=== PATIENT | male | born 1970 | race Caucasian/White ===

== ENCOUNTER 2021-06-11 08:21 | Emergency (ER) | payer OTHER ==
[2021-06-11 10:00] LABS: HCT 44.4 % (42.0-52.0); HGB 14.9 g/dl (13.2-18.0); MCHC 33.6 g/dL (32.0-36.0); MCV 89.5 fL (78.0-100.0); MPV 10.8 fL (6.0-9.5); RBC 4.96 M/uL (4.70-6.00); RDW 12.1 % (11.5-14.0); WBC 9.5 K/uL (4.0-10.5)
[2021-06-11 11:01] LABS: BUN/CREAT RATIO (CALC) 11.4 RATIO; CREATININE 0.7 mg/dL (0.67-1.17); POTASSIUM 3.9 mmol/L (3.5-5.1)
== END 2021-06-11 13:10 | disposition other institution (70) ==
LOC: FER 08:21
PROVIDERS: Emergency Medicine
DX: I63.9 Cerebral infarction, unspecified (principal); H53.8 Other visual disturbances; F17.210 Nicotine dependence, cigarettes, uncomplicated; R29.702 NIHSS score 2
CPT/HCPCS: 36415; 70450; 70551; 80048; 93005; J2060; J7030